=== PATIENT | male | born 1980 | race Caucasian/White ===

== ENCOUNTER 2017-09-24 20:33 | Emergency (ER) | payer MEDICARE ==
[2017-09-24 21:30] LABS: BASOPHILS 0.2 % (0-2); EOSINOPHILS 1.4 % (0-7); HEMATOCRIT 38.5 % (42.0-54.0); HEMOGLOBIN 13.2 g/dL (13.5-17.5); IMMATURE GRANULOCYTES 0.1 % (0-5); LYMPHOCYTES 38.3 % (15-50); MCH 30.7 pg (26.0-34.0); MCHC 34.3 g/dL (31.0-37.0); MCV 89.5 fL (80.0-100.0); MEAN PLATELET VOLUME 8.8 fL (7.4-10.4); MONOCYTES 12.5 % (2-11); NEUTROPHILS 47.5 % (40-80); PLATELET COUNT 201 10x3/uL (130-400); RDW 12.5 % (11.5-14.5); WBC 9.4 10x3/uL (4.8-10.8)
[2017-09-24 21:47] LABS: ALBUMIN 3.9 g/dL (3.4-5.0); ANION GAP 13.3 mmol/L (8-16); BILIRUBIN - TOTAL 0.67 mg/dL (0.2-1.3); CARBON DIOXIDE 27.4 mmol/L (21.0-32.0); CREATININE - SERUM 1.4 mg/dL (0.6-1.3); POTASSIUM - SERUM 3.7 mmol/L (3.5-5.1); PROTEIN - SERUM 7.4 g/dL (6.4-8.2)
== END 2017-09-25 01:00 | disposition home or self-care (01) ==
LOC: D.ER 20:33
PROVIDERS: Physician Assistant Medical
DX: F15.10 Other stimulant abuse, uncomplicated (principal); F15.151 Other stimulant abuse with stimulant-induced psychotic disorder with hallucinations; F17.200 Nicotine dependence, unspecified, uncomplicated

== ENCOUNTER 2017-09-25 20:36 | Inpatient (IN) | payer MEDICARE ==
[~2017-09-25] VITALS: Ht 182.9 cm; Wt 93.7 kg
--- NOTE | ~2017-09-25 | HP ---
PATIENT: SMILEY ALEJANDRO MEDICAL RECORD: [id number] ACCOUNT: [id number] LOCATION:[facility] [id number] : 76 ADMISSION DATE: 09/25/17 HISTORY AND PHYSICAL EXAMINATION DATE OF ADMISSION 09/25/17 CHIEF COMPLAINT: Intentional overdose. HISTORY OF PRESENT ILLNESS: The patient is a 36-year-old gentleman who is admitted to my service on unassigned medicine. Apparently, the patient had an intentional overdose. Apparently, he presented to the Emergency Room via EMS after taking a whole bottle approximately 600 mg tablets of dextromethorphan. No one is here to give any history. Apparently in the Emergency Room, the patient was somewhat psychotic. He apparently has had a history of having substance abuse, methamphetamine abuse. The patient was evaluated and felt he should be admitted to ICU. His past history cannot be obtained. The patient is sedated nor can his family history, habits, review of systems. PHYSICAL EXAMINATION: GENERAL: In the Emergency Room, his temperature was 100.1, his pulse was 97, respirations were 20, his blood pressure 165/77. Now, he is afebrile. Temperature is 98.2. His pulse is 84, respiration 19. His blood pressure 132/84, his pulse is 96. HEENT: His head is normocephalic. No lesions. Ears: TMs clear. Eyes: Pupils are somewhat constricted, but reactive to light. His nasal cavity, oral cavity, oropharynx clear. NECK: Supple. There is no adenopathy. HEART: Regular rate and rhythm without murmurs, gallops or rub. LUNGS: Clear. ABDOMEN: Soft. EXTREMITIES: The patient does respond to deep painful stimuli. NEUROLOGIC: He was given Ativan 4 mg in the Emergency Room to prevent seizures. He is in no acute distress at the present time. ASSESSMENT: Suicide attempt with intentional drug overdose, history of methamphetamine use. PLAN: We will keep the patient in ICU. Continue aggressive IV hydration. Also, Ativan for agitation. We will check the patient's temperature closely to make sure that he is not experiencing any serotonin syndrome. financial institution manager will be arranging for the patient to have inpatient psychiatric treatment once he is medically stable. TRANSINT:[id number] Voice Confirmation ID: [id number] DOCUMENT ID: [id number] HISTORY AND PHYSICAL [id number] SMILEY ALEJANDRO JAMES MD at 0714 CC: [id number] DICTATION DATE: 09/26/17 0615 [employer]GANIZATIONAL EFFECTIVENESS CONSULTANT: 09/26/17 1043 DIS IN 09/27/17 [place] [id number] [facility], [facility]
[2017-09-25 21:19] LABS: BASOPHILS 0.4 % (0-2); EOSINOPHILS 1.4 % (0-7); HEMATOCRIT 39.3 % (42.0-54.0); HEMOGLOBIN 13.6 g/dL (13.5-17.5); IMMATURE GRANULOCYTES 0.4 % (0-5); LYMPHOCYTES 22.1 % (15-50); MCH 30.9 pg (26.0-34.0); MCHC 34.6 g/dL (31.0-37.0); MCV 89.3 fL (80.0-100.0); MEAN PLATELET VOLUME 8.6 fL (7.4-10.4); MONOCYTES 7.1 % (2-11); NEUTROPHILS 68.6 % (40-80); PLATELET COUNT 190 10x3/uL (130-400); RDW 12.3 % (11.5-14.5); WBC 9.6 10x3/uL (4.8-10.8)
[2017-09-25 21:55] LABS: ALBUMIN 3.8 g/dL (3.4-5.0); ALKALINE PHOSPHATASE 78 U/L (46-116); ALT (SGPT) 36 U/L (10-68); BILIRUBIN - TOTAL 0.36 mg/dL (0.2-1.3); CALC OSMOLALITY 275 mosm/kg (275-300); CARBON DIOXIDE 26.2 mmol/L (21.0-32.0); CHLORIDE - SERUM 104 mmol/L (98-107); CREATININE - SERUM 1.3 mg/dL (0.6-1.3); GLUCOSE 71 mg/dL (74-106); POTASSIUM - SERUM 3.6 mmol/L (3.5-5.1); PROTEIN - SERUM 7.6 g/dL (6.4-8.2); SODIUM 140 mmol/L (136-145); UREA NITROGEN 9 mg/dL (7-18); eGFR NON AFRICAN AMERICAN 65 mL/min (90-120)
[2017-09-25 22:12] LABS: CREATINE KINASE 683 UL (21-232)
[2017-09-25 22:13] LABS: CKMB 2.4 U/L (0.0-3.6)
[2017-09-25 22:21] LABS: UDS - AMPHET POSITIVE QUAL (NEGATIVE); UDS - BARB NEGATIVE QUAL (NEGATIVE); UDS - BENZO NEGATIVE QUAL (NEGATIVE); UDS - COCAINE POSITIVE QUAL (NEGATIVE); UDS - OPIATE POSITIVE QUAL (NEGATIVE); UDS - PCP POSITIVE QUAL (NEGATIVE); UDS - THC NEGATIVE QUAL (NEGATIVE)
[2017-09-26] VITALS (16 sets, daily range): BP systolic 114–174; BP diastolic 62–99; Ht 182.9 cm; Wt 93.7 kg
[2017-09-26 02:12] LABS: APPEARANCE CLEAR (CLEAR); BILIRUBIN NEGATIVE (NEGATIVE); COLOR YELLOW (YELLOW); GLUCOSE NEGATIVE (NEGATIVE); KETONE NEGATIVE (NEGATIVE); NITRITE NEGATIVE (NEGATIVE); PROTEIN NEGATIVE (NEGATIVE); SPECIFIC GRAVITY 1.015 (1.005-1.020); UROBILINOGEN NORMAL (NORMAL)
[2017-09-26 02:14] LABS: BACTERIA NONE SEEN /hpf (NONE SEEN); EPITHELIAL CELLS 0-5 /hpf (0-5); RED CELLS - URINE 0-5 /hpf (0-5); WHITE CELLS - URINE 0-5 /hpf (0-5)
[2017-09-26 06:28] LABS: BASOPHILS 0.3 % (0-2); EOSINOPHILS 2.1 % (0-7); HEMATOCRIT 34.6 % (42.0-54.0); HEMOGLOBIN 11.6 g/dL (13.5-17.5); IMMATURE GRANULOCYTES 0.3 % (0-5); LYMPHOCYTES 36.3 % (15-50); MCH 29.9 pg (26.0-34.0); MCHC 33.5 g/dL (31.0-37.0); MCV 89.2 fL (80.0-100.0); MEAN PLATELET VOLUME 8.9 fL (7.4-10.4); MONOCYTES 9.5 % (2-11); NEUTROPHILS 51.5 % (40-80); PLATELET COUNT 163 10x3/uL (130-400); RBC 3.88 10x6/uL (4.20-6.10); RDW 12.4 % (11.5-14.5); WBC 7.7 10x3/uL (4.8-10.8)
[2017-09-26 07:17] LABS: CALC OSMOLALITY 275 mosm/kg (275-300); CALCIUM 8.2 mg/dL (8.5-10.1); CARBON DIOXIDE 24.6 mmol/L (21.0-32.0); CHLORIDE - SERUM 108 mmol/L (98-107); GLUCOSE 80 mg/dL (74-106); POTASSIUM - SERUM 3.4 mmol/L (3.5-5.1); SODIUM 140 mmol/L (136-145); UREA NITROGEN 8 mg/dL (7-18); eGFR NON AFRICAN AMERICAN 89 mL/min (90-120)
[2017-09-26 07:24] LABS: CKMB 2.7 U/L (0.0-3.6); CREATINE KINASE 1553 UL (21-232)
[2017-09-27] VITALS (17 sets, daily range): BP systolic 118–147; BP diastolic 62–96
[2017-09-27 04:01] LABS: BASOPHILS 0.4 % (0-2); EOSINOPHILS 2.7 % (0-7); HEMOGLOBIN 12.7 g/dL (13.5-17.5); IMMATURE GRANULOCYTES 0.1 % (0-5); LYMPHOCYTES 26.9 % (15-50); MCH 30.2 pg (26.0-34.0); MCHC 34.3 g/dL (31.0-37.0); MCV 88.1 fL (80.0-100.0); MEAN PLATELET VOLUME 8.7 fL (7.4-10.4); MONOCYTES 9.3 % (2-11); NEUTROPHILS 60.6 % (40-80); PLATELET COUNT 172 10x3/uL (130-400); WBC 6.8 10x3/uL (4.8-10.8)
[2017-09-27 04:15] LABS: ALBUMIN 2.7 g/dL (3.4-5.0); ALKALINE PHOSPHATASE 63 U/L (46-116); ALT (SGPT) 25 U/L (10-68); BILIRUBIN - TOTAL 0.41 mg/dL (0.2-1.3); CALC OSMOLALITY 278 mosm/kg (275-300); CALCIUM 8.2 mg/dL (8.5-10.1); CARBON DIOXIDE 25.2 mmol/L (21.0-32.0); CHLORIDE - SERUM 106 mmol/L (98-107); CREATININE - SERUM 0.9 mg/dL (0.6-1.3); GLUCOSE 111 mg/dL (74-106); POTASSIUM - SERUM 3.5 mmol/L (3.5-5.1); SODIUM 140 mmol/L (136-145); UREA NITROGEN 9 mg/dL (7-18); eGFR NON AFRICAN AMERICAN > 90 mL/min (90-120)
[2017-09-27] MEDS ORDERED: BUPROPION XL150 MG PO (13:51)
== END 2017-09-27 19:35 | disposition short-term general hospital (02) | DRG 917 ==
LOC: D.ER 20:36 → D.EDHOLD 23:11 → D.ICU 23:11
PROVIDERS: Emergency Medicine; Family Medicine
DX: T48.3X2A Poisoning by antitussives, intentional self-harm, initial encounter (principal); R40.2223 Coma scale, best verbal response, incomprehensible words, at hospital admission; F32.9 Major depressive disorder, single episode, unspecified; F19.10 Other psychoactive substance abuse, uncomplicated; R40.2363 Coma scale, best motor response, obeys commands, at hospital admission; R40.2143 Coma scale, eyes open, spontaneous, at hospital admission

== ENCOUNTER 2018-02-25 01:13 | Emergency (ER) | payer MEDICARE ==
[~2018-02-25] VITALS: Ht 182.9 cm; Wt 86.4 kg
[~2018-02-25 01:13] MED LIST: BUPROPION XL150 MG PO
[2018-02-25 01:20] VITALS: Ht 182.9 cm; Wt 86.4 kg
[2018-02-25] MEDS ORDERED: AMOXICILLIN500 M1 PO (01:40)
[2018-02-25 01:50] VITALS: BP 128/78
== END 2018-02-25 01:51 | disposition home or self-care (01) ==
LOC: D.ER 01:13
DX: H60.12 Cellulitis of left external ear (principal)

== ENCOUNTER 2018-03-05 16:35 | Emergency (ER) | payer MEDICARE ==
[~2018-03-05] VITALS: Ht 182.9 cm; Wt 86.4 kg
[~2018-03-05 16:35] MED LIST changes: +AMOXICILLIN500 M1 PO
[2018-03-05 16:42] VITALS: Ht 182.9 cm; Wt 86.4 kg
[2018-03-05 17:05] LABS: BASOPHILS 0.3 % (0-2); EOSINOPHILS 1.7 % (0-7); HEMATOCRIT 34.3 % (42.0-54.0); HEMOGLOBIN 11.8 g/dL (13.5-17.5); IMMATURE GRANULOCYTES 0.2 % (0-5); LYMPHOCYTES 23.5 % (15-50); MCH 30.7 pg (26.0-34.0); MCHC 34.4 g/dL (31.0-37.0); MCV 89.3 fL (80.0-100.0); MEAN PLATELET VOLUME 8.8 fL (7.4-10.4); NEUTROPHILS 63.3 % (40-80); RBC 3.84 10x6/uL (4.20-6.10); RDW 12.2 % (11.5-14.5); WBC 6.5 10x3/uL (4.8-10.8)
[2018-03-05 17:06] LABS: PLATELET COUNT 208 10x3/uL (130-400)
[2018-03-05 17:17] LABS: APPEARANCE CLEAR (CLEAR); BILIRUBIN NEGATIVE (NEGATIVE); GLUCOSE NEGATIVE (NEGATIVE); KETONE NEGATIVE (NEGATIVE); NITRITE NEGATIVE (NEGATIVE); PROTEIN NEGATIVE (NEGATIVE); UROBILINOGEN NORMAL (NORMAL)
[2018-03-05 17:25] LABS: COLOR YELLOW (YELLOW)
[2018-03-05 17:26] LABS: BACTERIA FEW /hpf (NONE SEEN); RED CELLS - URINE OCC /hpf (0-5); WHITE CELLS - URINE 0-5 /hpf (0-5)
[2018-03-05 17:35] LABS: ALBUMIN 3.4 g/dL (3.4-5.0); ANION GAP 11.3 mmol/L (8-16); BILIRUBIN - TOTAL 0.29 mg/dL (0.2-1.3); CALCIUM 8.5 mg/dL (8.5-10.1); CARBON DIOXIDE 28.4 mmol/L (21.0-32.0); CREATININE - SERUM 1.3 mg/dL (0.6-1.3); MAGNESIUM - SERUM 2.1 mg/dL (1.8-2.4); POTASSIUM - SERUM 3.7 mmol/L (3.5-5.1); PROTEIN - SERUM 6.6 g/dL (6.4-8.2)
[2018-03-05 17:36] LABS: UDS - AMPHET POSITIVE QUAL (NEGATIVE); UDS - BARB NEGATIVE QUAL (NEGATIVE); UDS - BENZO NEGATIVE QUAL (NEGATIVE); UDS - COCAINE NEGATIVE QUAL (NEGATIVE); UDS - OPIATE NEGATIVE QUAL (NEGATIVE); UDS - PCP NEGATIVE QUAL (NEGATIVE); UDS - THC NEGATIVE QUAL (NEGATIVE)
[2018-03-05 22:01] VITALS: BP 112/68
== END 2018-03-05 23:10 ==
LOC: D.ER 16:35
PROVIDERS: Family Medicine
DX: R45.851 Suicidal ideations (principal); F17.200 Nicotine dependence, unspecified, uncomplicated